=== PATIENT | male | born 1950 | race Caucasian/White ===

== ENCOUNTER 2018-03-24 21:48 | Emergency (ER) | payer OTHER ==
[~2018-03-24] VITALS: Ht 162.6 cm; Wt 68.0 kg
[~2018-03-24 21:48] MED LIST: KEFLEX500 MG PO; VICODIN1 TA1 PO
[2018-03-24 21:54] VITALS: Ht 162.6 cm; Wt 68.0 kg
[2018-03-24 22:57] LABS: PLATELET COUNT 340 x10^3mcL (130-400); RED CELL DISTRIBUTION WIDTH 12.5 % (11.5-14.5)
[2018-03-24 23:10] LABS: CALCIUM 9.4 mg/dL (8.5-10.1); CHLORIDE SERUM 100 mmol/L (98-107); CREATININE SERUM 1.2 mg/dL (0.7-1.3); GFR1 > 60 mL/min; GLUCOSE SERUM 187 mg/dL (74-106); SODIUM SERUM 137 mmol/L (136-145)
[2018-03-24 23:23] LABS: ALKALINE PHOSPHATASE 107 U/L (46-116); ALT/SGPT 39 U/L (16-63); AMYLASE 42 U/L (25-115); AST/SGOT 24 U/L (15-37); BILIRUBIN TOTAL 0.64 mg/dL (0.20-1.00); CHOLESTEROL 171 mg/dL (<200); LIPASE 111 IU/L (73-393); T4(THYROXINE) 5.9 ug/dL (4.7-13.3); TOTAL PROTEIN, SERUM 8.1 g/dL (6.4-8.2)
[2018-03-24 23:25] LABS: ALBUMIN 3.3 g/dL (3.4-5.0); HDL CHOLESTEROL 32 mg/dL (40-60)
[2018-03-25 00:09] LABS: BAND NEUTROPHIL 2 % (0-10); MONOCYTE 3 % (0-7); SEGMENTED NEUTROPHILS 90 % (37-75)
[2018-03-25 00:10] LABS: PLATELET MORPHOLOGY PLATELETS NORMAL; rbc morphology (normal/abnorm) NORMAL (NORMAL)
[2018-03-25 02:33] LABS: microscopic required? NO
[2018-03-25 03:04] LABS: urine erythrocyte NEGATIVE (NEGATIVE)
[2018-03-25 03:13] LABS: AMPHETAMINE QUAL UR NONE DETECTED (See below)
[2018-03-25 05:00] VITALS: BP 145/86
== END 2018-03-25 05:00 | disposition short-term general hospital (02) ==
LOC: ED 21:48
PROVIDERS: Emergency Medicine
DX: I82.402 Acute embolism and thrombosis of unspecified deep veins of left lower extremity (principal); D72.829 Elevated white blood cell count, unspecified
CPT/HCPCS: J1644; J1956; J7030; Q0092; Q9967